=== PATIENT | female | born 1985 | race African-American/Black ===

== ENCOUNTER 2016-08-18 23:33 | Observation (INO) | payer OTHER ==
[~2016-08-18] VITALS: Ht 165.1 cm; Wt 73.4 kg
[~2016-08-18 23:33] MED LIST: CARV3.12 PO; TUMS500C CHEW
[2016-08-19 00:26] VITALS: BP 123/67; PULSE 103; RESP 21; TEMP 98.8; O2SAT 99
[2016-08-19] MEDS ORDERED: HYDROmorphone HCL PF 1 MG/ML VIAL IV ONE (05:30)
[2016-08-19 06:33] LABS: CHLORIDE 105 MEQ/L (98-107); POTASSIUM 3.8 MEQ/L (3.5-5.1); SODIUM (NA) 139 MEQ/L (136-145)
[2016-08-19 06:34] LABS: ALKALINE PHOSPHATASE 120 U/L (45-117); ALT (GPT) 160 U/L (10-53); ANION GAP 13 MEQ/L (5-15); AST (GOT) 66 U/L (15-37); BICARBONATE 21.3 MEQ/L (21.0-32.0); BLOOD UREA NITROGEN 7 MG/DL (7-18); GLOMERULAR FILTRATION RATE 137 ML/MIN (>89); TOTAL BILIRUBIN ADULT 0.6 MG/DL (0.2-1.0)
--- NOTE | 2016-08-19 08:46 | HHI.HP ---
HPI Service [facility] Hospitalists Primary Care Physician Dr. Barbra Olmedo Admission Diagnosis Chest pain, elevated LFTs Chief Complaint: Chest pain Travel History International Travel<30 Days: No Contact w/Intl Traveler <30 Da: No Traveled to Known Affected Are: No History of Present Illness Mrs. Fung is a 31 y/o AAF with HTN and GERD who presented to the ED at [facility] with complaints of left-sided chest pain which began yesterday morning upon awakening. She states that it is located just over the left breast and seems to radiate to her back. Pt states that it seemed to come and go all day, lasting for about 10-15 minutes at a time. Initially was a dull ache but seemed to worsen into sharp stabbing pain throughout the day yesterday. She did eat a muffin and a banana yesterday morning and nothing after that. She was unsure if the food directly worsened the pain or not. She did not have any nausea or vomiting but did have some diarrhea. She also noted some diaphoresis associated with this pain. Denies any SOB or dizziness. She does report that for the last few days she has noted feeling like her heart was pounding in her chest periodically. She denies any recent heavy lifting or increased activity. She denies any new workout regimen. She does have issues with reflux/indigestion which she uses TUMS for. Pt does not feel that this pain is like the indigestion she has had previously. Pt had a CTA which was negative for PE and CXR with no acute disease. Her serial CE have been negative. She was noted to have elevated LFTs in the ED with AST 81, ALT 169, AlkPhos 124 and a normal TBili of 0.4. Pt was noted to have gallstones on the CTA. General Surgery was consulted and I spoke wt Dr. Eldridge this morning after he evaluated the pt and he did not think that the gallbladder was causing her pain. Pt still having pain this morning mainly in her back under the scapula. The pain on the back is not reproducible but she does have chest wall pain that' s reproducible. Review of Systems Constitutional: COMPLAINS OF: Diaphoretic episodes, DENIES: Fever, Chills Respiratory: DENIES: Cough, Shortness of breath Cardiovascular: COMPLAINS OF: Chest pain, Palpitations, DENIES: Dyspnea on Exertion, Lower Extremity Edema Gastrointestinal: COMPLAINS OF: Diarrhea, DENIES: Abdominal pain, Nausea, Vomiting Genitourinary: DENIES: Hematuria Musculoskeletal: COMPLAINS OF: Back pain Integumentary: DENIES: Rash Neurologic: DENIES: Headache Psychiatric: DENIES: Confusion Past Family Social History Past Medical History HTN GERD Past Surgical History Cesarian section Reported Medications Tums 500 Mg CHEW QID PRN Carvedilol 3.125 Mg PO BID Allergies: Coded Allergies: No Known Allergies (Unverified , 08/18/16) Family History Noncontributory Social History Occasional alcohol use Denies any tobacco or illicit drug use Physical Exam Vital Signs Vital Signs Date Time Temp Pulse Resp B/P Pulse Ox O2 Delivery O2 Flow Rate FiO2 08/19/16 00:26 98.8 103 21 123/67 99 Physical Exam GENERAL: This is a well-nourished, well-developed patient, in no apparent distress. HEENT: Atraumatic. Normocephalic. No temporal or scalp tenderness. No scleral icterus. Airway patent. NECK: Trachea midline, supple, nontender. CARDIO: Regular. Left anterior chest wall pain with palpation. RESP: CTA bilaterally. No wheezes, rales, or rhonchi. ABD: +BS, soft, non-tender, nondistended. EXT: Extremities without clubbing, cyanosis, or edema. NEURO: Awake and alert. Motor and sensory grossly within normal limits. Normal speech. Laboratory Laboratory Tests Test 08/19/16 08/19/16 00:32 05:20 Troponin I LESS THAN 0.02 LESS THAN 0.02 Sodium Level 139 Potassium Level 3.8 Chloride Level 105 Carbon Dioxide Level 21.3 Anion Gap 13 Blood Urea Nitrogen 7 Creatinine 0.61 Estimat Glomerular Filtration 137 Rate Random Glucose 79 Calcium Level 9.4 Total Bilirubin 0.6 Aspartate Amino Transf 66 (AST/SGOT) Alanine Aminotransferase 160 (ALT/SGPT) Alkaline Phosphatase 120 Total Protein 7.3 Albumin 3.2 Result Diagram: 08/19/16 0520 Imaging Pulmonary CTA (08/18/16): - Gallstones present in the visualized gallbladder - No evidence of PE CXR (08/18/16): - No acute disease Septic Shock Reassessment Heart: Regular rate and rhythm Lungs: Clear Skin: Warm Peripheral Pulses: Bounding Right Radial Bounding Left Radial Bounding Right Popliteal Bounding Left Popliteal Bounding Right Dorsalis Pedis Bounding Left Dorsalis Pedis Bounding Right Posterior Tibial Bounding Left Posterior Tibial Assessment and Plan Problem List: (1) Left sided chest pain Status: Acute Plan: - Pt is a 31 y/o AAF with HTN and GERD who presented with a 2 day history of left sided chest pain that radiates to her back. - Serial CE are negative. - Pt noted to have elevated LFTs and gallstones. General Surgery evaluated this morning and they did not feel there was any surgical intervention necessary at this time. - GB US is pending. - Check Lipase level - Check treadmill stress test - 2D echo - Telemetry - Holter monitor, which can be completed as an outpt. - Antiinflammatory for possible chest wall pain. - Protonix 40mg po daily - Anticipate discharge to home later today once the above tests are completed. - Zofran PRN (2) Elevated LFTs Status: Acute Plan: - Pt with noted elevated LFTs, etiology unclear. - Review of outpt labs pt had a negative viral hepatitis panel and negative HIV screen in 07/2016 - Ferritin and iron studies in 07/2016 were also WNL. - Check SUNNI, ASMA, AMA, Ceruloplasmin, [id number]. - The pt will need outpt followup with GI to review the results of these labs and for monitoring of her LFTs. (3) Cholelithiasis Status: Chronic (4) HTN (hypertension) Status: Chronic Plan: - Cont. home meds (5) GERD (gastroesophageal reflux disease) Status: Chronic Plan: - PPI Assessment and Plan Patient examined. Assessment and plan formulated with Yumiko Stewart PA-C. I agree with the above. Pt performed Exercise Stress test which showed mainly NSR/sinus tach Case reviewed with Cardiology, Dr. Teague. Will obtain Sed rate, Free T4, TSH prior to d/c Pt may complete Holter monitor at home and return device to [place] for interpretation. - Echocardiogram done, results pending - will resume home medications - naprosyn 500mg BID with food for 2 weeks - norco 5/325mg q6h prn pain, #7, NO RF - protonix - f/u with PCP, Dr. Zimmer, in 1 week - f/u with [facility] in 2 weeks TSH suppressed free T4 elevated These results are consisten with hyperthroidism. Continue metoprolol f/u with Endocrinology, Dr. Kumar, in 1 week. Problem Qualifiers (1) Cholelithiasis: Qualified Code: K80.20 - Calculus of gallbladder without cholecystitis without obstruction Yumiko Stewart August 19, 2016 08:46 Ray Ojeda DO August 19, 2016 16:37
[2016-08-19 09:14] VITALS: BP 134/75; PULSE 107; RESP 18; TEMP 99.2; O2SAT 96
[2016-08-19] MEDS ORDERED: PANTOPRAZOLE SOD 40 MG DELAYED RELEASE TAB PO SCH (09:30)
[2016-08-19] MEDS ORDERED: ACETAMINOPHEN/HYDROcodone 325 MG/5 MG TAB PO PRN (09:30)
[2016-08-19] MEDS ORDERED: NAPROXEN 500 MG TAB PO SCH (09:30)
[2016-08-19] MEDS ORDERED: ACETAMINOPHEN 325 MG TAB PO PRN (09:30)
[2016-08-19] MEDS ORDERED: ONDANSETRON HCL 4 MG/2 ML VIAL IV PRN (09:45)
--- NOTE | 2016-08-19 10:26 | RADRPT ---
EXAM DATE/TIME: 08/19/2016 08:24 [place] COMPARISON: No previous studies available for comparison. INDICATIONS : Right upper quadrant pain. MEDICAL HISTORY : Hypertension. Right upper quadrant pain. SURGICAL HISTORY : section. ENCOUNTER: Initial ACUITY: 4-6 days PAIN SCORE: 5/10 LOCATION: Right upper quadrant MEASUREMENTS: LIVER: 12.4 cm length COMMON DUCT: 4 mm RIGHT KIDNEY: 10.5 x 4.3 x 5.3 cm FINDINGS: LIVER: Normal echotexture without focal lesion or ductal dilatation. COMMON DUCT: No intraluminal mass or stone visualized. GALLBLADDER: Contains large non-mobile stone, demonstrates no wall thickening or pericholecystic fluid. PANCREAS: The visualized portions are within normal limits. RIGHT KIDNEY: No evidence of hydronephrosis, stone, or mass. CONCLUSION: 1. Large non-mobile stone without gallbladder without wall thickening or pericholecystic fluid Zain Spaulding MD on August 19, 2016 at 10:23 Board Certified Radiologist. This report was verified electronically.
[2016-08-19] MEDS ORDERED: CARVEDILOL 3.125 MG TAB PO SCH (11:00)
[2016-08-19 12:00] VITALS: BP 130/74; PULSE 96; RESP 18; TEMP 98.2; O2SAT 98
--- NOTE | 2016-08-19 14:30 | MB ---
cc: LAKEISHA CARRERO MD DATE OF CONSULTATION: 08/19/2016 REASON FOR CONSULTATION Possible cholecystitis. HISTORY OF PRESENT ILLNESS This is a 31-year-old female who presented to the emergency department in [place] with complaint of left-sided chest pain. She states the chest pain is above and below her left breast and on the lateral side of her chest wall as well as actually in the breast itself. The pain has been intermittent for the last 2-3 days. She feels that her heart when the pain occurs is pounding but not necessarily racing. She does not recall any change in activity or strenuous activity. She has never had any pain like this before. She continues to be able to eat well and without any nausea or vomiting. She has had a couple of c-sections. Past medical history only includes hypertension for which she is on Coreg. The patient was admitted to the [facility] hospital. Actually in the ER she had a CT angiogram of the chest which was negative for pulmonary embolism but showed gallstones. She also had mild elevation of her AST, ALT, alkaline phosphatase. Troponins were normal. White blood count was normal with no change in the differential. PAST MEDICAL HISTORY Hypertension. PAST SURGICAL HISTORY . ALLERGIES No known allergies. HOME MEDICATIONS Coreg. SOCIAL HISTORY Occasional alcohol use, no tobacco or drug use. FAMILY HISTORY Noncontributory. REVIEW OF SYSTEMS 10-point review of systems negative except as mentioned in the HPI. PHYSICAL EXAMINATION GENERAL: Pleasant well-developed, well-nourished female. VITAL SIGNS: Temperature 99.2, heart rate 107, respirations 18, blood pressure 135/75. HEAD: Normocephalic, atraumatic. EYES: Pupils equal, round, reactive to light bilaterally. No scleral icterus. LUNGS: Clear to auscultation bilaterally without wheezing or rhonchi. CARDIOVASCULAR: Regular rate and rhythm. ABDOMEN: Soft, nontender, nondistended. Negative Chou's sign. BREASTS: She was examined in the presence of a female OFF PREMISE SERVICE REPRESENTATIVE. The left breast is nontender. There are no obvious masses or abnormalities. No erythema. CHEST: Chest wall tenderness to palpation of the lateral chest wall and anterior chest wall above the breast. SKIN: Warm, dry, nonjaundiced. IMPRESSION AND PLAN A 31-year-old female with atypical left chest pain and mild transaminitis and mild elevation of alkaline phosphatase. I do not think that she has gallbladder disease, although she does have gallstones seen on the CT scan. I do not recommend cholecystectomy or further evaluation for gallbladder disease at this time. If desired she could be evaluated for the elevated transaminases as inpatient or an outpatient. I spoke with Dr. Ojeda and workup will continue to rule out any further cardiac causes. MD REZA Parks/TLL /1:49 PM /2:08 PM
[2016-08-19 15:59] VITALS: BP 128/73; PULSE 92; RESP 18; TEMP 98.1; O2SAT 99
[2016-08-19] MEDS ORDERED: NAPR500 PO (16:30)
[2016-08-19] MEDS ORDERED: PANT20 PO (16:30)
[2016-08-19] MEDS ORDERED: HYDR-3516 PO (16:31)
[2016-08-19 17:00] LABS: FREE T4 2.49 NG/DL (0.76-1.46)
--- NOTE | 2016-08-19 19:02 | EC ---
Study Study Date:08/19/2016 STUDY CONCLUSIONS SUMMARY LEFT VENTRICLE: The cavity size was normal. Wall thickness was normal. Systolic function was normal. The estimated ejection fraction was 60%. Wall motion was normal; there were no regional wall motion abnormalities. If LV function is below 40, please consider prescribing an ACEI or ARB or document rationale for non-use. PROCEDURE DATA STUDY STATUS: Elective. Procedure: Transthoracic echocardiography. Image quality was good. Scanning was performed from the parasternal, apical, and subcostal acoustic windows. Study completion: The patient tolerated the procedure well. Transthoracic echocardiography. M-mode, complete 2D, complete spectral Doppler, and color Doppler. Patient status: Inpatient. CARDIAC ANATOMY LEFT VENTRICLE: The cavity size was normal. Wall thickness was normal. Systolic function was normal. The estimated ejection fraction was 60%. Wall motion was normal; there were no regional wall motion abnormalities. AORTIC VALVE: Trileaflet; normal thickness leaflets. Doppler: Transvalvular velocity was within the normal range. There was no stenosis. No regurgitation. Valve area: 1.99cm^2(VTI). Valve area: 1.69cm^2 (Vmax). Mean gradient: 4mm Hg (S). AORTA: Aortic root: The aortic root was normal in size. MITRAL VALVE: Structurally normal valve. Doppler: Transvalvular velocity was within the normal range. There was no evidence for stenosis. Trace regurgitation. Peak gradient: 3mm Hg (D). LEFT ATRIUM: The atrium was normal in size. RIGHT VENTRICLE: The cavity size was normal. Wall thickness was normal. PULMONIC VALVE: Doppler: Transvalvular velocity was within the normal range. There was no evidence for stenosis. No regurgitation. TRICUSPID VALVE: Structurally normal valve. Doppler: Transvalvular velocity was within the normal range. Trace regurgitation. PULMONARY ARTERY: The main pulmonary artery was normal-sized. Systolic pressure was within the normal range. RIGHT ATRIUM: The atrium was normal in size. PERICARDIUM: There was no pericardial effusion. SYSTEMIC VEINS: Inferior vena cava: The vessel was normal in size. BASIC MEASUREMENTS ADULT NORMAL Left ventricle LV internal dimension, ED, chordal level, *36.7 mm 43-52 PLAX LV internal dimension, ES, chordal level, 28.2 mm 23-38 PLAX Fractional shortening, chordal level, PLAX *23 % >29 LV posterior wall thickness, ED 8.04 mm IVS/LVPW ratio, ED 1 <1.3 Ventricular septum Septal thickness, ED 8.01 mm Aortic valve Leaflet separation 17 mm 15-26 Aorta Root diameter, ED 27 mm Left atrium Anterior-posterior dimension 26 mm BASIC MEASUREMENTS ADULT NORMAL Aortic valve Leaflet separation 17 mm 15-26 DOPPLER MEASUREMENTS ADULT NORMAL Aortic valve Peak velocity, S 142 cm/s Mean velocity, S 92.4 cm/s VTI, S 22.6 cm Mean gradient, S 4 mm Hg Valve area, VTI 1.99 cm^2 Valve area, Vmax 1.69 cm^2 Mitral valve Peak E-wave velocity 80.9 cm/s Peak A-wave velocity 71.6 cm/s Deceleration time 225 ms 150-230 Peak gradient, D 3 mm Hg Peak E/A ratio 1.1 Tricuspid valve Regurgitant peak velocity 216 cm/s Peak RV-RA gradient, S 19 mm Hg Maximal regurgitant velocity 216 cm/s Pulmonic valve Peak velocity, S 94 cm/s LEGEND: Mean values are shown as u=mean value. Asterisk (*) joshi values outside specified normal range. Prepared and signed by Oralia Freed [id number]
--- NOTE | 2016-08-19 19:13 | HHI.DCPOC ---
Discharge Care Plan Diagnosis: (1) Left sided chest pain (2) Hyperthyroidism (3) Elevated LFTs (4) HTN (hypertension) Goals to Promote Your Health * To prevent worsening of your condition and complications * To maintain your health at the optimal level Directions to Meet Your Goals Take your medications as prescribed Follow your dietary instruction Follow activity as directed Keep your appointments as scheduled Take your immunizations and boosters as scheduled If your symptoms worsen call your PCP, if no PCP go to Urgent Care Center or Emergency Room Smoking is Dangerous to Your Health. Avoid second hand smoke Call the 24-hour hour crisis hotline for domestic abuse at Ray Ojeda DO August 19, 2016 19:13
--- NOTE | 2016-08-19 19:22 | EKG ---
Date Performed: 08/19/2016 Time Performed: 06:10:14 PTAGE: 31 years EKG: Sinus rhythm PREVIOUS TRACING : 08/19/2016 00.38 Compared to prior tracing no significant change DOCTOR: Oralia Freed Interpretating Date/Time 08/19/2016 19:21:15
--- NOTE | 2016-08-19 19:45 | EKG ---
Date Performed: 08/19/2016 Time Performed: 00:38:53 PTAGE: 31 years EKG: Sinus rhythm NONSPECIFIC T-WAVE ABNORMALITY BORDERLINE ECG NO PREVIOUS TRACING DOCTOR: Oralia Freed Interpretating Date/Time 08/19/2016 19:44:22
[2016-08-22 03:50] LABS: MITOCHONDRIAL ABS LESS THAN 20.0 U (())
--- NOTE | 2016-08-24 10:30 | TR ---
Date Performed: 08/19/2016 Time Performed: 15:24:11 DOCTOR: Andrew Teague DRUG LIST: CLINICAL HISTORY: REASON FOR TEST: REASON FOR ENDING: OBSERVATION: CONCLUSION: CHRIS PROTOCOL ETT. NO CP. TEST STOPPED AFTER EXCEEDING GOAL HR SECONDARY TO SOB AND LEG FATIGUE.Maximum XV=397 % Max HR Achieved=93.0% Maximum RO=822/94 Total Exercise Time=7:32 COMMENTS: Patient exercised using the Chris protocol. No electrocardiographic changes were seen to suggest ischemia. Hemodynamic response to exercise was normal. No significant arrhythmia was prese nt.
== END 2016-08-19 20:05 | disposition home or self-care (01) ==
LOC: NEDDLT 23:33 → UNDOADMOB 23:43 → NEPHCDU 23:43 → UNDODISOB 08-19 20:05
PROVIDERS: ADMIT Hospitalist; ATTEND Hospitalist
DX: R07.89 Other chest pain (principal); I10 Essential (primary) hypertension; K21.9 Gastro-esophageal reflux disease without esophagitis; R79.89 Other specified abnormal findings of blood chemistry; R74.0 Nonspecific elevation of levels of transaminase and lactic acid dehydrogenase [LDH]; K80.20 Calculus of gallbladder without cholecystitis without obstruction; E05.90 Thyrotoxicosis, unspecified without thyrotoxic crisis or storm
CPT/HCPCS: 71010; 71275; 76705; 80053; 82103; 82390; 82550; 83520; 83690; 84439; 84443; 84484; 84702; 85025; 85379; 85610; 85652; 85730; 86038; 86256; 93005; 93017; 93306; 99285; G0378; J1170; J2405; Q9967; 99281